=== PATIENT | male | born 1940 | race Caucasian/White ===

== ENCOUNTER 2021-07-12 08:32 | Outpatient (CLI) | payer MEDICARE, BC ==
[2021-07-12 21:08] LABS: SARS-CoV-2 PCR by NAA Not Detected (NotDetected)
== END 2021-07-12 08:33 | disposition home or self-care (01) ==
LOC: LABBT 08:32
PROVIDERS: ATTEND Ophthalmology Retina Specialist
DX: Z01.812 Encounter for preprocedural laboratory examination (principal); H43.391 Other vitreous opacities, right eye; Z20.822 Contact with and (suspected) exposure to COVID-19
CPT/HCPCS: U0003; U0005

== ENCOUNTER 2021-07-15 06:06 | Day surgery (SDC) | payer MEDICARE, BC ==
[2021-07-14 13:47] VITALS: BMI 28.7
[~2021-07-15 06:06] MED LIST: Cyclopentolate 1% Opth Drop 2 ML BOT FS SCH; EPINEPHrine 0.3 MG in Ophthalmic Irrigation Solution 500 ML IRR SCH; Phenylephrine 2.5% Ophth Soln 5 ML BOT FS SCH
[2021-07-15] MEDS ORDERED: PROPOFOL 20 ML ONE (06:15)
[2021-07-15] MEDS ORDERED: Fentanyl 100 MCG/2 ML VIAL ONE (06:15)
[2021-07-15] MEDS ORDERED: Phenylephrine 2.5% Ophth Soln 5 ML BOT ONE (06:19)
[2021-07-15] MEDS ORDERED: Cyclopentolate 1% Opth Drop 2 ML BOT ONE (06:19)
[2021-07-15] MEDS ORDERED: Maxitrol 0.1% Opth Oint 3.5 GM TUBE ONE (07:18)
[2021-07-15] MEDS ORDERED: Lidocaine 1% PF 5 ML VIAL ONE (07:18)
[2021-07-15] MEDS ORDERED: Triamcinolone 40 MG/ML VIAL ONE (07:18)
[2021-07-15] MEDS ORDERED: Bupivacaine PF 0.75% SDV 10 ML ONE (07:18)
[2021-07-15] MEDS ORDERED: Lidocaine 4% PF 5 ML AMP ONE (07:18)
[2021-07-15] MEDS ORDERED: CEFAZOLIN 1 GM VIAL ONE (07:18)
== END 2021-07-15 08:35 | disposition home or self-care (01) ==
LOC: SDC 06:06
PROVIDERS: ATTEND Ophthalmology Retina Specialist
PROC: 08T43ZZ Resection of Right Vitreous, Percutaneous Approach (ICD-10-PCS; principal; 2021-07-15)
PROC: 08NE3ZZ Release Right Retina, Percutaneous Approach (ICD-10-PCS; 2021-07-15)
DX: H43.311 Vitreous membranes and strands, right eye (principal); I10 Essential (primary) hypertension; E78.5 Hyperlipidemia, unspecified; Z87.891 Personal history of nicotine dependence; Z79.82 Long term (current) use of aspirin; Z79.84 Long term (current) use of oral hypoglycemic drugs; Z79.899 Other long term (current) drug therapy; Z88.8 Allergy status to other drugs, medicaments and biological substances; Z96.1 Presence of intraocular lens
CPT/HCPCS: J0171; J0690; J2704; J3010; J3301; J3490